=== PATIENT | male | born 1955 | race Caucasian/White ===

== ENCOUNTER 2019-04-15 19:29 | Emergency (ER) | payer OTHER ==
[~2019-04-15] VITALS: Ht 172.7 cm; Wt 104.3 kg
[2019-04-15] MEDS ORDERED: MORPHINE SULFATE 4 MG/ML VIAL. IV ONE ×2 (20:30→22:00)
--- NOTE | 2019-04-15 21:02 | RAD ---
Study: 1. WRIST 3V LEFT 2. FOREARM LEFT 3. ELBOW LEFT 3V Indication: Fall from a height. Comparison: None. Findings: Dorsal dislocation of the radius and ulna at the elbow with an associated comminuted and displaced fracture through the radial neck and a comminuted fracture of the coronoid process with bone fragment seen anterior to the distal humerus on the lateral view. The fractured coronoid process is impacted against the posterior margin of the distal humerus. Corresponding surrounding soft tissue swelling and a large elbow joint effusion. No acute fracture the more distal radius and ulna. No acute fracture at the left wrist. Soft tissue swelling along the distal forearm extending to the wrist. Impression: 1. Dorsal dislocation at the elbow joint with an associated comminuted and displaced radial neck fracture as well as a comminuted fracture of the coronoid process. The fractured coronoid process is fixed in position along the posterior aspect of the distal humerus. 2. No acute fracture the left wrist or at the more distal left forearm Electronically signed by: SARAH DAVIS MD (04/15/2019 8:59 PM) [facility]
--- NOTE | 2019-04-15 21:06 | PHYS DOC ---
Past Medical History RISKS/ALTERNATIVES Risks/Alternatives Risks and alternatives of this type of sedation and procedure discussed with: (OCNRAD DAVIDSON APRN) Risks/Alternatives Risks and alternatives of this type of sedation and procedure discussed with: RISK/ALTERNATIVES: Patient (KAYLENE LONG MD) H & P ON CHART H & P H & P on chart and reviewed for co-morbid conditions and appropriate labs. (CONRAD DAVIDSON APRN) H & P H & P on chart and reviewed for co-morbid conditions and appropriate labs. H&P ON CHART: Yes (KAYLENE LONG MD) STATUS PREG STATUS ASSESSED: N/A (KAYLENE LONG MD) MEDS/ALLERGIES REVIEWED Meds/Allergies Reviewed Medications and Allergies including time and route of recently administered narcotics and sedatives. (CONRAD DAVIDSON APRN) Meds/Allergies Reviewed Medications and Allergies including time and route of recently administered narcotics and sedatives. MEDS/ALLERGIES REVIEWED: Yes (KAYLENE LONG MD) ASA RATING ASA RATING: II (KAYLENE LONG MD) AIRWAY ASSESSMENT Airway Assessment Airway patency, oral function limitations, presence of caps, crowns, dentures, partials, and ability to extend neck assessed. (CONRAD DAVIDSON APRN) Airway Assessment Airway patency, oral function limitations, presence of caps, crowns, dentures, partials, and ability to extend neck assessed. AIRWAY ASSESSMENT: Yes (KAYLENE LONG MD) MALLAMPATI SCORE MALLAMPATI SCORE: II (KAYLENE LONG MD) PRE-SEDATION ASSESSMENT PRE-SEDATION ASSESSMENT: Yes (KAYLENE LONG MD) Attending Signature I have participated in the care of this patient and I have reviewed and agree with all pertinent clinical information above including history, exam, and recommendations. (KAYLENE LONG MD) Adult General Chief Complaint Chief Complaint: MECHANICAL FALL HPI HPI Patient is a 63 year old male brought to the emergency department with complaints of left elbow, left forearm, left wrist pain after a fall while getting out of his son might today. Patient states he stepped down off of his semi-into he believes a pothole which caused him to fall. He denies any dizziness, syncope, chest pain, or palpitations. Patient currently rates his pain a 10 out of 10 on pain scale, he states that the fentanyl that was given by the ambulance did help to relieve his pain at first but the medication seems to more normal. Patient denies any head, neck, back, or lower extremity pain after the fall. He denies any nausea, vomiting, vision changes, numbness, or tingling. (CONRAD DAVIDSON APRN) Review of Systems Review of Systems Constitutional: Denies fever or chills [] Eyes: Denies redness, or eye pain [] HENT: Denies nasal congestion or sore throat [] Respiratory: Denies cough or shortness of breath [] Cardiovascular: No additional information not addressed in HPI [] GI: Denies abdominal pain, nausea, vomiting Musculoskeletal: Denies back pain; see history of present illness Integument: Denies rash or skin lesions [] Neurologic: Denies headache, focal weakness or sensory changes [] Complete systems were reviewed and found to be within normal limits, except as documented in this note. (CONRAD DAVIDSON APRN) Current Medications Current Medications Current Medications Medications (Trade) Dose Ordered Sig/Rubin Start Time Stop Time Status Last Admin Dose Admin Acetaminophen/ Hydrocodone Bitart (Lortab 5/325) 1 tab 1X ONCE 04/15/19 23:30 04/15/19 23:31 DC Morphine Sulfate (Morphine Sulfate) 4 mg 1X ONCE 04/15/19 22:00 04/15/19 22:01 DC 04/15/19 21:53 4 MG Propofol 20 ml @ 0 mls/hr 1X ONCE 04/16/19 01:15 04/16/19 01:16 DC 04/15/19 22:24 10 MLS/HR (KAYLENE LONG MD) Allergies Allergies Allergies Coded Allergies Type Severity Reaction Last Updated Verified No Known Drug Allergies 04/15/19 No (KAYLENE LONG MD) Physical Exam Physical Exam Constitutional: Well developed, well nourished, no acute distress, non-toxic appearance. [] HENT: Normocephalic, atraumatic, bilateral external ears normal, nose normal. [] Eyes: PERRLA, EOMI, conjunctiva normal, no discharge. [] Neck: Normal range of motion, no stridor. [] Cardiovascular:Heart rate regular rhythm Lungs & Thorax: Respirations even and unlabored, no retractions, no respiratory distress Skin: Warm, dry, no erythema, no rash. [] Extremities: Left elbow tenderness to palpation with limited range of motion concerning for dislocation, no cyanosis, no clubbing, 2+ radial left pulse Neurologic: Alert and oriented X 3, no focal deficits noted. [] Psychologic: Affect normal, judgement normal, mood normal. [] (CONRAD DAVIDSON APRN) Current Patient Data Vital Signs Vital Signs Date Time Temp Pulse Resp B/P (MAP) Pulse Ox O2 Delivery O2 Flow Rate FiO2 04/16/19 00:10 80 14 95 04/15/19 22:23 98.6 156/79 2.0 98.4 04/15/19 21:53 Room Air (KAYLENE LONG MD) EKG EKG [] (CONRAD DAVIDSON APRN) Radiology/Procedures Radiology/Procedures PROCEDURE: WRIST 3V LEFT Study: 1. WRIST 3V LEFT 2. FOREARM LEFT 3. ELBOW LEFT 3V Indication: Fall from a height. Comparison: None. Findings: Dorsal dislocation of the radius and ulna at the elbow with an associated comminuted and displaced fracture through the radial neck and a comminuted fracture of the coronoid process with bone fragment seen anterior to the distal humerus on the lateral view. The fractured coronoid process is impacted against the posterior margin of the distal humerus. Corresponding surrounding soft tissue swelling and a large elbow joint effusion. No acute fracture the more distal radius and ulna. No acute fracture at the left wrist. Soft tissue swelling along the distal forearm extending to the wrist. Impression: 1. Dorsal dislocation at the elbow joint with an associated comminuted and displaced radial neck fracture as well as a comminuted fracture of the coronoid process. The fractured coronoid process is fixed in position along the posterior aspect of the distal humerus. 2. No acute fracture the left wrist or at the more distal left forearm[] PROCEDURE: ELBOW LEFT 2V Study: ELBOW LEFT 2V Indication: Status post reduction. Comparison: Same day left elbow radiographs. Findings: Casting material is in place. There has been interval reduction of the previous seen noted posterior elbow dislocation. Alignment has significantly improved. Redemonstrated fractures of the coronoid process and radial head and neck. Impression: Reduced posterior elbow dislocation with improved alignment of the comminuted radial head/neck fracture as well as the comminuted fracture of the coronoid process. (CONRAD DAVIDSON APRN) Course & Med Decision Making Course & Med Decision Making Pertinent Labs and Imaging studies reviewed. (See chart for details) 2124- Spoke with Dr. Aaron who reviewed pt's x-ray. Per Dr. Aaron the dislocation needs to be reduced and then pt needs to follow up with an elbow specialist for this complex radial head fx. Place pt in a posterior long arm splint and sling after dislocation is reduced. Dr. Long performed moderate sedation and reduction of L elbow dislocation. Pt was prescribed #20 hydrocodone 5/325 mg tablets and advised to call [facility] in the morning for follow up appointment. Pt instructed to wear splint and sling that were placed in ER until follow up appointment. Return to the ER if symptoms worsen. Pt's and pt verbalized an understanding of home care, medications, follow- up, and return to ED instructions and were in agreement with the plan of care. [] (CONRAD DAVIDSON APRN) Dragon Disclaimer Dragon Disclaimer This electronic medical record was generated, in whole or in part, using a voice recognition dictation system. (CONRAD DAVIDSON APRN) Departure Departure Impression: Primary Impression: Fracture dislocation of left elbow joint Additional Impression: Left radial head fracture Disposition: 01 HOME, SELF-CARE Condition: STABLE Referrals: JONATHAN MARTIN MD (PCP) Patient Instructions: Elbow Dislocation, Radial Head Fracture, [id number] Additional Instructions: Fill prescription(s) and use as directed. Recommend application of ice, elevation, and rest of affected extremity. Wear the splint and sling that were placed until follow up appointment. Follow up with [facility], call [phone] to schedule an appointment. Return to the ER if your symptoms worsen. Scripts Hydrocodone Bit/Acetaminophen (HYDROCODONE-APAP 5-325 ) 1 Tab Tablet 1 TAB PO PRN Q6HRS PRN for PAIN for 5 Days, #20 TAB 0 Refills Prov: CONRAD DAVIDSON APRN 04/15/19 Problem Qualifiers Primary Impression: Fracture dislocation of left elbow joint Encounter type: initial encounter Fracture type: closed Qualified Codes: S42.402A - Unspecified fracture of lower end of left humerus, initial encounter for closed fracture Additional Impression: Left radial head fracture Encounter type: initial encounter Fracture type: closed Fracture alignment: displaced Qualified Codes: S52.122A - Displaced fracture of head of left radius, initial encounter for closed fracture CONRAD DAVIDSON APRN Apr 15, 2019 21:06 KAYLENE LONG MD Apr 15, 2019 23:11
[2019-04-15] MEDS ORDERED: PROPOFOL 20 ML IV ONE (21:32)
[2019-04-15 22:23] VITALS: BP 156/79
--- NOTE | 2019-04-15 22:51 | RAD ---
Study: ELBOW LEFT 2V Indication: Status post reduction. Comparison: Same day left elbow radiographs. Findings: Casting material is in place. There has been interval reduction of the previous seen noted posterior elbow dislocation. Alignment has significantly improved. Redemonstrated fractures of the coronoid process and radial head and neck. Impression: Reduced posterior elbow dislocation with improved alignment of the comminuted radial head/neck fracture as well as the comminuted fracture of the coronoid process. Electronically signed by: SARAH DAVIS MD (04/15/2019 10:48 PM) [facility]
[2019-04-15] MEDS ORDERED: HYDROcodone/APAP 5/325MG 1 TAB TABLET PO ONE (23:30)
[2019-04-15] MEDS ORDERED: HYDR-2761 PO (23:33)
[2019-04-16 00:10] VITALS: BP 111/56
[2019-04-16] MEDS ORDERED: PROPOFOL 20 ML IV ONE (01:15)
== END 2019-04-16 00:25 | disposition home or self-care (01) ==
LOC: ER 19:29
DX: S42.402A Unspecified fracture of lower end of left humerus, initial encounter for closed fracture (principal); S52.122A Displaced fracture of head of left radius, initial encounter for closed fracture; W05.0XXA Fall from non-moving wheelchair, initial encounter; Y93.89 Activity, other specified; Y92.89 Other specified places as the place of occurrence of the external cause; Y99.8 Other external cause status
CPT/HCPCS: 24655; 73070; 73080; 73090; 73110; 96374; 99285; J2270; J2704